=== PATIENT | female | born 1990 | race Caucasian/White ===

== ENCOUNTER 2016-11-19 12:47 | Emergency (ER) | payer MEDICAID ==
[~2016-11-19] VITALS: Ht 165.1 cm; Wt 58.1 kg
[~2016-11-19 12:47] MED LIST: CEPH500C PO; CEPH500T PO; DCS100C PO; DOXY100C42 PO; HYDR-3729 PO; IBP600T1 PO; IBUP-1773 PO; METR500T PO; METR500T21 PO; NITR-65 PO; OSLT75C PO; OXYC-12 PO; PHEN100T26 PO; PHEN200T27 PO; PREN-115 PO; SULF-222 PO; SULF1TAB35 PO
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
[2016-11-19] MEDS ORDERED: KETOROLAC 60 MG/2 ML VIAL IM ONE (13:00)
[2016-11-19 14:18] LABS: BILIRUBIN,URINE NEGATIVE (NEGATIVE); KETONES,URINE NEGATIVE (NEGATIVE); LEUKOCYTE ESTERASE ,URINE 1+ (NEGATIVE); NITRITE,URINE NEGATIVE (NEGATIVE); PH,URINE 5 (5-9); PROTEIN,URINE NEGATIVE (NEGATIVE); UROBILINOGEN,URINE NORMAL (NORMAL)
[2016-11-19 14:30] LABS: SQUAMOUS EPITHELIAL CELL,UR 25-50 /HPF; WBC,URINE 0-2 /HPF
[2016-11-19 14:39] VITALS: BP 120/71
== END 2016-11-19 14:39 | disposition home or self-care (01) ==
LOC: EDUNIT# 12:47 → ER 12:50
DX: M25.551 Pain in right hip (principal); M25.552 Pain in left hip; N89.8 Other specified noninflammatory disorders of vagina; R35.0 Frequency of micturition
CPT/HCPCS: 36415; 81000; 84703; 87070; 87210; 87491; 87591; 96372; 99284

== ENCOUNTER → 2017-08-21 | Outpatient (CLI) | payer MEDICAID ==
--- NOTE | 2017-08-21 12:55 | Diagnostic Imaging Report ---
First trimester OB ultrasound. INDICATION: Dating. FINDINGS: There is a normal-appearing single intrauterine . An embryo is seen with cardiac activity at 132 beats per minute. The crown-rump length is at 7 weeks and zero day. BLAKE is 04/09/18. The ovaries are not seen, likely obscured by bowel gas. IMPRESSION: Live single intrauterine . Dictated by: Dictated on workstation # [id number]
== END ==
LOC: RAD 11:31
PROVIDERS: ATTEND Family Medicine
DX: Z36.87 Encounter for antenatal screening for uncertain dates (principal); Z3A.01 Less than 8 weeks gestation of pregnancy
CPT/HCPCS: 76801; 76817

== ENCOUNTER → 2017-11-14 | Outpatient (CLI) | payer MEDICAID ==
--- NOTE | 2017-11-14 14:42 | Diagnostic Imaging Report ---
INDICATION: survey. TECHNIQUE: Multiple real-time grayscale images were obtained over the gravid uterus. COMPARISON: 08/21/2017. FINDINGS: There is a single live fetus in a variable presentation. The placenta is anterior. The amniotic fluid volume is normal. heart rate was recorded at 146 beats per minute. survey demonstrates kidneys, bladder and stomach to be unremarkable. brain is unremarkable. The four-chamber heart view is unremarkable. There is a three-vessel cord. There is a normal cord insertion. The spine is unremarkable. Biometrical measurements are as follows: Biparietal 4.6 cm, age 19 weeks 6 days. Head circumference 16.7 cm, age 19 weeks 3 days. Abdominal circumference 14.3 cm, age 19 weeks 5 days. Femur length 3.1 cm, age 19 weeks 4 days. Sonographic estimate age: 19 weeks 5 days. Sonographic estimated date of delivery: 04/05/18. Estimated Weight: 298 gm (+/- 44 gm). LMP percentile: 69%. heart rate: 146 beats per minute. number: 1 of 1. IMPRESSION: Single live IUP approximately 19-20 weeks gestational age demonstrating normal interval growth when compared with exam from 08/21/2017. No complicating features are detected. Dictated by: Dictated on workstation # [id number]
== END ==
LOC: RAD 13:10
PROVIDERS: ATTEND Family Medicine
DX: Z36.89 Encounter for other specified antenatal screening (principal); Z3A.19 19 weeks gestation of pregnancy
CPT/HCPCS: 76805

== ENCOUNTER 2018-02-27 20:50 | Outpatient (CLI) | payer MEDICAID ==
[~2018-02-27] VITALS: Ht 167.6 cm; Wt 81.0 kg
[2018-02-27] MEDS ORDERED: prenatal (21:27)
[2018-02-27 21:40] VITALS: BP 115/74
--- NOTE | 2018-03-02 12:04 | Physician Query-Final Dx ---
REZA NIETO 03/02/18 1204: Clinic Account Progress/Dx Physician Query: Please give diagnosis Date of Service February 27, 2018 at 20:50 LESLEY DO DO 03/16/18 0730: Clinic Account Progress/Dx DIAGNOSIS: Diagnosis 1. 34 week gestatioin 2. swelling BP check - wnl REZA NIETO March 02, 2018 12:04 LESLEY DO DO March 16, 2018 07:30
== END 2018-02-27 22:10 ==
LOC: LDRP 20:50 → WSo 20:50
PROVIDERS: ATTEND Family Medicine
DX: O12.03 Gestational edema, third trimester (principal); Z3A.34 34 weeks gestation of pregnancy
CPT/HCPCS: 99213

== ENCOUNTER 2018-03-22 22:06 | Outpatient (CLI) | payer MEDICAID ==
[~2018-03-22] VITALS: Ht 165.1 cm; Wt 86.2 kg
[~2018-03-22 22:06] MED LIST changes: +prenatal
[2018-03-22 23:05] VITALS: BP 118/69
[2018-03-22] MEDS ORDERED: PREN1TAB19 PO (23:55)
[2018-03-23] MEDS ORDERED: hydrOXYzine (VISTARIL) 25 MG CAP PO ONE
[2018-03-23] MEDS ORDERED: hydrOXYzine (VISTARIL) 25 MG CAP ONE (00:09)
[2018-03-23] MEDS ORDERED: SUFENTA 0.6MCG/ML BUPIVA 0.125 100 ML ONE (04:22)
--- NOTE | 2018-03-23 14:17 | Physician Query-Final Dx ---
JAROD RAYGOZA 03/23/18 1417: Clinic Account Progress/Dx Physician Query: Please give diagnosis Date of Service Mar 22, 2018 at 22:06 YASMIN ROMAN MD 03/24/18 2200: Clinic Account Progress/Dx DIAGNOSIS: Diagnosis third trimester preg Contractions JAROD RAYGOZA Mar 23, 2018 14:17 YASMIN ROMAN MD Mar 24, 2018 22:00
== END 2018-03-23 00:12 | disposition home or self-care (01) ==
LOC: LDRP 22:06 → WSo 22:06
PROVIDERS: ATTEND Family Medicine
DX: O47.1 False labor at or after 37 completed weeks of gestation (principal); Z3A.37 37 weeks gestation of pregnancy
CPT/HCPCS: 99213

== ENCOUNTER 2018-04-05 19:00 | Inpatient (IN) | payer MEDICAID ==
[~2018-04-05] VITALS: Ht 165.1 cm; Wt 86.0 kg
[~2018-04-05 19:00] MED LIST changes: +PREN1TAB19 PO
[2018-04-05 19:33] VITALS: BP 133/84
--- OUTSIDE RECORDS SUMMARY | 2018-04-05 19:36 | XMS REPORT ---
Author Author LESLEY DO Organization [employer] Address Unknown Phone Unavailable Care Team Providers Care Inspector Balance Bridge Name Role Phone LESLEY DO CP Unavailable Allergies No Known Allergies Problems No Known Problems Medications No Known Medications Results No Known Results Summary Purpose [employer] Submission
--- OUTSIDE RECORDS SUMMARY | 2018-04-05 19:37 | XMS REPORT | Continuity of Care Document ---
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 DATING [id number] 04/11/2016 20:59:00 04/11/2016 22:20:00 DIS Emergency ALEXY STEELE MD [facility] [place] ER CRAMPING;8 WEEKS [id number] 02/13/2016 11:18:00 02/13/2016 13:06:00 DIS Emergency ALEXY STEELE MD [facility] [place] ER UTI SYMPTOMS/ITCHING [id number] 01/04/2016 07:29:00 01/04/2016 09:19:00 DIS Emergency ALEXY STEELE MD [facility] [place] ER COUGH;BODY ACHES; FEVER [id number] 07/27/2015 19:15:00 07/27/2015 20:25:00 DIS Emergency DIONISIO KERR DO [facility] [place] ER POSSIBLE YEAST INFECTION [id number] 02/01/2015 20:24:00 02/01/2015 21:49:00 DIS Emergency HEATHER DAVIS APRN [facility] [place] ER PERIOD LASTING 3 WKS [id number] 12/10/2013 06:04:00 12/11/2013 14:15:00 DIS Inpatient DWAYNE DOVER MD [facility] [place] WS INDUCTION [id number] 12/01/2013 00:03:00 12/01/2013 03:55:00 DIS Outpatient DWAYNE DOVER MD [facility] [place] WSo CONTRACTIONS [id number] 11/21/2013 20:34:00 11/22/2013 00:10:00 DIS Outpatient DWAYNE DOVER MD [facility] [place] [facility]So POSS CONTRACTIONS [id number] 09/17/2013 17:41:00 09/17/2013 19:04:00 DIS Emergency ALEXY STEELE MD [facility] [place] ER L LEG PAIN; NO INJ [id number] 09/17/2013 16:32:00 09/17/2013 17:35:00 DIS Outpatient WDAYNE DOVER MD [facility] [place] [facility]So L LEG PAIN [id number] 09/05/2013 15:43:00 09/05/2013 23:59:59 CLS Outpatient [id number] 08/13/2013 14:58:00 08/13/2013 23:59:59 CLS Outpatient DWAYNE DOVER MD [facility] [place] [facility] FUNDAL HEIGHT DISCREPENCY [id number] 05/14/2013 14:48:00 05/14/2013 23:59:59 CLS Outpatient DWAYNE DOVER MD [facility] [place] [facility] SIZE DATE DISCREPANCY [id number] 04/11/2013 18:50:00 04/11/2013 20:57:00 DIS Emergency MORRIS NOBLES [facility] [place] [facility] CRAMPING PREG LESS THAN 20 WEEKS [id number] 03/16/2012 20:01:00 Document Registration [id number] 07/03/2011 19:07:00 Document Registration [id number] 07/01/2011 12:39:00 Document Registration [id number] 06/26/2011 22:22:00 Document Registration [id number] 06/09/2011 00:09:00 Document Registration [id number] 03/01/2011 13:57:00 Document Registration [id number] 01/04/2011 15:30:00 Document Registration [id number] 05/29/2010 18:31:00 Document Registration
[2018-04-05] MEDS ORDERED: D5 LR IV SOLUTION 1,000 ML IV ONE (19:50)
[2018-04-05] MEDS: D5 LR IV SOLUTION 1,000 ML IV SCH (20:00)
[2018-04-05] MEDS ORDERED: NITR-65 PO (20:29)
[2018-04-05] MEDS ORDERED: BUTORPHANOL INJ 2 MG/ML (STADOL) VIAL IV PRN (20:30)
[2018-04-05] MEDS ORDERED: MINERAL OIL CONCENTRATE 99.9% 15 ML UDC TOP PRN (20:30)
[2018-04-05] MEDS ORDERED: ZOLPIDEM 5 MG (AMBIEN) TAB PO PRN (20:30)
[2018-04-05] MEDS ORDERED: DINOPROSTONE 10 MG (CERVIDIL) INSERT PV ONE (20:30)
[2018-04-05] MEDS ORDERED: NITROFURANTOIN 100 MG (MACROBID) CAPSULE PO ONE (20:30)
[2018-04-05 20:37] LABS: BASOPHILS % (AUTO) 0 % (0-10); EOSINOPHILS # (AUTO) 0.2 10^3/uL (0.0-0.3); EOSINOPHILS % (AUTO) 2 % (0-10); HEMATOCRIT 36 % (35-52); HEMOGLOBIN 12.2 G/DL (11.5-16.0); LYMPHOCYTES % (AUTO) 19 % (12-44); MEAN CORPUSCULAR HEMOGLOBIN 29 PG (25-34); MEAN CORPUSCULAR HGB CONC 34 G/DL (32-36); MEAN CORPUSCULAR VOLUME 85 FL (80-99); MEAN PLATELET VOLUME 10.7 FL (7.4-10.4); MONOCYTES # (AUTO) 0.5 X 10^3 (0.0-1.0); MONOCYTES % (AUTO) 5 % (0-12); NEUTROPHILS # (AUTO) 7.6 X 10^3 (1.8-7.8); NEUTROPHILS % (AUTO) 74 % (42-75); PLATELET COUNT 294 10^3/uL (130-400); RED BLOOD COUNT 4.23 10^6/uL (4.35-5.85); RED CELL DISTRIBUTION WIDTH 13.6 % (10.0-14.5); WHITE BLOOD COUNT 10.3 10^3/uL (4.3-11.0)
[2018-04-05] MEDS ORDERED: CATHETER FLUSH 10 ML SYR IV SCH (22:00)
[2018-04-05 23:30] VITALS: BP 106/55
[2018-04-06] VITALS (36 sets, daily range): BP systolic 98–178; BP diastolic 55–95
[2018-04-06] MEDS: D5 LR IV SOLUTION 1,000 ML IV SCH (04:00)
[2018-04-06] MEDS ORDERED: OXYTOCIN/NORMAL SALINE 500 ML IV SCH ×2 (07:17→12:26)
--- NOTE | 2018-04-06 07:17 | History & Physical-OB ---
OB - Chief Complaint & HPI Date/Time Date of Admission: Date of Admission: Apr 05, 2018 at 19:15 Time Seen by Provider: 07:05 Chief Complaint/History OB-Reason for Admission/Chief: Induction of Labor Hx : 3 Hx Para: 2 Expected Date of Delivery: Apr 09, 2018 Gestational Age in Weeks: 39 Gestational Age in Days: 4 Admission Nurse Assessment Rev: Yes History of Labs GBS negative Allergies and Home Medications Allergies Coded Allergies: No Known Drug Allergies (Unverified , 08/29/16) Home Medications Nitrofurantoin Monohyd/M-Cryst 100 Mg Capsule, 1 TAB PO BID, (Reported) Vit/Iron Fumarate/FA 1 Each Tablet, 1 EACH PO DAILY, (Reported) Patient Home Medication List Home Medication List Reviewed: Yes OB - History Hx of Present Care: Yes Ultrasounds: Normal mid trimester US Obstetrical Complications: None Medical Complications: None Obstetrical History Hx Complication: No Hx Induced Hypertens: No Hx Maternal Gestational Diabet: No Delivery History Hx Dystocia: No Hx Large For Gestational Age I: No Hx Small for Gestational Age I: No Hx Section: No Hx Vaginal Delivery Post C-Sec: No Hx Blood Disorders: No Adverse Rxn to Tranfusion: No Patient Past Medical History no chronic medical problems Social History/Family History HIV/AIDS: No Recent Infectious Disease Expo: No Sexually Transmitted Disease: No Alcohol Use: Denies Use Recreational Drug Use: No OB - Admission Exam Physical Exam Vitals: Vital Signs 04/06/18 04:03 Temp 98.2 Pulse 56 Resp 18 B/P (MAP) 117/73 (88) O2 Delivery Room Air HEENT: Moist Membranes Heart: Rhythm Normal Lungs: Clear Abdomen: Gravid Extremities: Normal Cervical Dilatation: 1cm Effacement: 50% Station: -3 Membranes: Intact Heart Rate: 140's Accelerations: Accelerations Present Short Term Variability: Present Contractions on Admission: < 5 Minutes Apart Intensity: Mild Lundy Scoring Tool (Modified) Dilation (cm): 1-2cm (1) Effacement (%): 31-51% (1) Descent/Station: -3 (0) Cervix Consistency: Medium(1) Cervix Position: Middle/Mid-Position (1) Lundy Score: 6 Labs Laboratory Tests Test 04/05/18 20:00 Range/Units White Blood Count 10.3 4.3-11.0 10^3/uL Red Blood Count 4.23 L 4.35-5.85 10^6/uL Hemoglobin 12.2 11.5-16.0 G/DL Hematocrit 36 35-52 % Mean Corpuscular Volume 85 80-99 FL Mean Corpuscular Hemoglobin 29 25-34 PG Mean Corpuscular Hemoglobin Concent 34 32-36 G/DL Red Cell Distribution Width 13.6 10.0-14.5 % Platelet Count 294 130-400 10^3/uL Mean Platelet Volume 10.7 H 7.4-10.4 FL Neutrophils (%) (Auto) 74 42-75 % Lymphocytes (%) (Auto) 19 12-44 % Monocytes (%) (Auto) 5 0-12 % Eosinophils (%) (Auto) 2 0-10 % Basophils (%) (Auto) 0 0-10 % Neutrophils # (Auto) 7.6 1.8-7.8 X 10^3 Lymphocytes # (Auto) 2.0 1.0-4.0 X 10^3 Monocytes # (Auto) 0.5 0.0-1.0 X 10^3 Eosinophils # (Auto) 0.2 0.0-0.3 10^3/uL Basophils # (Auto) 0.0 0.0-0.1 10^3/uL OB - Assessment/Plan/Diagnosis Assessment Assessment: induction of labor Admission Dx IUP at 39w4d gestation Admission Status: Inpatient Order (span 2 midnights) Reason for Inpatient Admission: Labor management Plan Plan: Induction Induction Method: other (cervidil) Other Plan desires epidural DWAYNE DOVER MD Apr 06, 2018 07:16
[2018-04-06] MEDS ORDERED: SUFENTA 0.6MCG/ML BUPIVA 0.125 100 ML ONE (07:53)
[2018-04-06] MEDS ORDERED: fentaNYL INJECTION 100 MCG/2 ML AMP ONE (08:43)
[2018-04-06] MEDS ORDERED: BUPIVACAINE 0.25% 30 ML (SENSORCAINE) VIAL ONE (08:43)
[2018-04-06] MEDS ORDERED: LIDOCAINE PF 2% 5 ML (XYLOCAINE) VIAL ONE (08:43)
[2018-04-06] MEDS ORDERED: LACTATED RINGERS 1,000 ML IV SCH (09:11)
[2018-04-06] MEDS ORDERED: EPIDURAL (SUFENTA 0.6MCG/ML BUPIVA 0.125%) 100 ML BAG EPI PRN (09:15)
[2018-04-06] MEDS ORDERED: NALOXONE 0.4 MG/ML 1 ML (NARCAN) VIAL IV PRN (09:15)
[2018-04-06] MEDS ORDERED: ONDANSETRON 4 MG/2 ML (SDV) Z0FRAN IV PRN (09:15)
[2018-04-06] MEDS ORDERED: diphenhydrAMINE 50 MG/ML INJ (BENADRYL) IV PRN (09:15)
[2018-04-06] MEDS ORDERED: WITCH HAZEL(TUCKS) 40 EA JAR TOP PRN (12:30)
[2018-04-06] MEDS ORDERED: MEASLES,MUMPS,RUBELLA 1 EA INJ SQ ONE (12:30)
[2018-04-06] MEDS ORDERED: BENZOCAINE/MENTHOL (DERMOPLAST) 56 ML CAN TP PRN (12:30)
[2018-04-06] MEDS ORDERED: TETANUS,DIPTH,PERTUSS P/F (BOOSTRIX) 0.5 ML VIAL IM ONE (12:30)
--- NOTE | 2018-04-06 12:31 | OB Labor & Delivery Record ---
L&D History Date of Service Date of Service: Apr 06, 2018 History Expected Date of Delivery: Apr 09, 2018 Gestational Age in Weeks: 39 Hx : 3 Hx Para: 3 Complications Events: Routine care Operative Indications (Cesarea: N/A-Vaginal Delivery Intrapartal Events: None L&D Stage1 Stage One Onset of Labor - Date: Apr 06, 2018 Onset of Labor - Time: 07:00 Monitors and Tracing Monitor Mode: Internal Heart Rate: 120 Monitor Accelerations: Uniform Station: -1 Short Term Variability: Present Presentation: Vertex Vital Signs VS - Last 72 Hours, by Label 04/05/18 04/05/18 04/06/18 04/06/18 19:33 23:30 04:03 08:00 Temp 99.0 97.8 98.2 Pulse 79 55 56 60 Resp 18 18 18 B/P (MAP) 133/84 (100) 106/55 (72) 117/73 (88) 150/95 (113) O2 Delivery Room Air Room Air Room Air Room Air 04/06/18 04/06/18 04/06/18 04/06/18 08:30 08:55 09:00 09:03 Temp 99.2 Pulse 58 84 78 77 Resp 18 B/P (MAP) 152/94 (113) 178/85 (116) 139/92 (108) 125/80 (95) Pulse Ox 100 O2 Delivery Room Air Room Air Room Air 04/06/18 04/06/18 04/06/18 04/06/18 09:06 09:09 09:15 09:18 Pulse 71 86 75 100 Resp 18 B/P (MAP) 128/84 (99) 127/80 (96) 146/84 (104) 127/71 (89) Pulse Ox 99 99 O2 Delivery Room Air Room Air Room Air Room Air 04/06/18 04/06/18 04/06/18 04/06/18 09:21 09:24 09:27 09:30 Pulse 65 68 68 70 B/P (MAP) 126/75 (92) 122/76 (91) 116/79 (91) 126/84 (98) O2 Delivery Room Air Room Air Room Air Room Air 04/06/18 04/06/18 04/06/18 04/06/18 09:35 09:38 09:40 09:45 Pulse 65 74 76 74 B/P (MAP) 118/71 (87) 115/55 (75) 101/59 (73) 100/63 (75) O2 Delivery Room Air Room Air Room Air Room Air 04/06/18 04/06/18 04/06/18 04/06/18 09:48 09:51 09:58 10:00 Pulse 70 54 64 58 B/P (MAP) 116/59 (78) 115/63 (80) 113/69 (84) 98/55 (69) Pulse Ox 99 99 99 O2 Delivery Room Air Room Air Room Air Room Air 04/06/18 04/06/18 04/06/18 10:15 10:30 10:45 Pulse 61 67 64 B/P (MAP) 107/65 (79) 107/65 (79) 133/79 (97) Pulse Ox 100 100 100 O2 Delivery Room Air Room Air Room Air Signs of Distress by FHT Signs of Distress no Rupture of Membranes Spontaneous Ruture of Membrane: No Amniotic Membrane Rupture Time: 15 Amniotic Membrane Fluid Desc.: Clear Induction/Anesthesia Epidural Cath Placement - Time: 0858 L&D Stage2 Stage Two Stage II Date: Apr 06, 2018 Stage II Time: 11:40 Monitors and Tracing Monitor Mode: Internal Heart Rate: 120 Monitor Accelerations: Uniform Monitor Decelerations: Variable Summer Counselor Variability: Average (6-10) Position: Left Occiput Anterior Presentation: Vertex Signs of Distress by FHT Signs of Distress no Cord Descript/Complications Cord Vessel Description: 3 Vessels Delivery Type Delivery Method: Spontaneous Vaginal Anterior Shoulder: Left Episiotomy/Perineal Laceration Laceraction(s)/Extensions: No Condition of Infant Delivery 1 minute Comment: 9 5 minute Comment: 9 Condition of Infant Condition of : Living Exam: No Observed Abnormalities Resuscitation Resuscitation: N/A - Spontaneous Resp L&D Stage3 Stage Three Stage III Date: Apr 06, 2018 Stage III Time: 11:44 Pictocin Pitocin Administration mu/min: 2 Pitocin ml/hr: 2 Pitocin Administration Comment: 1010 pitocin started Placenta Delivery Placenta Delivery: Spontaneous Delivery Summary Summary Estimated blood loss (mL): 200 Condition of Delivery Examined: Cervix Examined Post Hemorrhage: No Intervention Required none DWAYNE DOVER MD Apr 06, 2018 12:31
[2018-04-06] MEDS: IBUPROFEN 600 MG (MOTRIN) TAB PO SCH ×2 (13:30→20:30)
[2018-04-06] MEDS ORDERED: CATHETER FLUSH 10 ML SYR IV SCH (14:00)
[2018-04-06] MEDS: NITROFURANTOIN 100 MG (MACROBID) CAPSULE PO SCH (20:30)
[2018-04-06] MEDS ORDERED: [UNRECOGNIZED DRUG - OTHER] PO SCH (21:00)
[2018-04-06] MEDS: DOCUSATE SODIUM 100 MG (COLACE) CAP PO SCH (23:43)
[2018-04-07] MEDS: IBUPROFEN 600 MG (MOTRIN) TAB PO SCH ×3 (02:41→13:41)
[2018-04-07 04:15] VITALS: BP 109/74
[2018-04-07] MEDS ORDERED: PRENATAL VITAMIN 1 EA TAB PO SCH (07:00)
[2018-04-07 07:01] LABS: BASOPHILS % (AUTO) 0 % (0-10); EOSINOPHILS # (AUTO) 0.3 10^3/uL (0.0-0.3); EOSINOPHILS % (AUTO) 3 % (0-10); HEMATOCRIT 30 % (35-52); HEMOGLOBIN 9.8 G/DL (11.5-16.0); LYMPHOCYTES # (AUTO) 2.4 X 10^3 (1.0-4.0); LYMPHOCYTES % (AUTO) 19 % (12-44); MEAN CORPUSCULAR HEMOGLOBIN 29 PG (25-34); MEAN CORPUSCULAR HGB CONC 33 G/DL (32-36); MEAN CORPUSCULAR VOLUME 87 FL (80-99); MEAN PLATELET VOLUME 10.6 FL (7.4-10.4); MONOCYTES # (AUTO) 0.9 X 10^3 (0.0-1.0); MONOCYTES % (AUTO) 7 % (0-12); NEUTROPHILS # (AUTO) 8.8 X 10^3 (1.8-7.8); NEUTROPHILS % (AUTO) 71 % (42-75); PLATELET COUNT 208 10^3/uL (130-400); RED CELL DISTRIBUTION WIDTH 13.6 % (10.0-14.5); WHITE BLOOD COUNT 12.4 10^3/uL (4.3-11.0)
[2018-04-07 07:15] VITALS: BP 128/95
[2018-04-07] MEDS: NITROFURANTOIN 100 MG (MACROBID) CAPSULE PO SCH ×2 (07:46→17:35)
[2018-04-07] MEDS: DOCUSATE SODIUM 100 MG (COLACE) CAP PO SCH (07:47)
[2018-04-07] MEDS ORDERED: IRON FUMARATE PO SCH (09:00)
[2018-04-07] MEDS ORDERED: PRENATAL VIT PO SCH (09:00)
[2018-04-07] MEDS ORDERED: [UNRECOGNIZED DRUG - OTHER] PO SCH (09:00)
--- NOTE | 2018-04-07 11:05 | Anesthesia-Regional Post-Op ---
Regional Patient Condition Mental Status: Alert, Oriented x3 Circulation: Same as Pre-Op Headache: Absent Sensation: Full Recovery Motor Block: Absent Post Op Complications Complications None Follow Up Care/Instructions Patient Instructions None needed. Anesthesia/Patient Condition Patient is doing well, no complaints, stable vital signs, no apparent adverse anesthesia problems. No complications reported per nursing. YOAN RAMIREZ CRNA Apr 07, 2018 11:05
[2018-04-07 13:35] VITALS: BP 120/81
[2018-04-07] MEDS: HYDROcodone/APAP 5 MG/325 MG (LORTAB) TAB PO PRN ×2 (13:41→17:30)
--- NOTE | 2018-04-07 15:11 | Discharge Inst-Women's Service ---
Discharge Inst-Women's Serv Consults/Follow Up Additional Follow Up: Yes (Dr Dover in 6 weeks) Activity Driving Instructions: No Driving for 1 Week Nothing Inside Vagina: No [place] (for 4-6 weeks) Diet Discharge Diet: No Restrictions Return to The Hospital For: as below Symptoms to Report to : Pain Increased, Fever Over 101 Degrees F, Vaginal Bleeding Increase, Vaginal Discharge Foul For Any Problems or Questions: Contact Your Physician DWAYNE DOVER MD Apr 07, 2018 15:11
[2018-04-07] MEDS ORDERED: TETANUS,DIPTH,PERTUSS P/F (BOOSTRIX) 0.5 ML VIAL IM ONE (16:39)
--- NOTE | 2018-04-07 16:46 | Discharge Summary ---
Diagnosis/Chief Complaint Date of Admission Apr 05, 2018 at 19:15 Date of Discharge April 07, 2018 Discharge Date: Apr 07, 2018 Admission Diagnosis Admission Diagnosis 1. IUP at 39 weeks. Discharge Diagnosis 1. IUP at 39 weeks. Reason Hospital Visit 27-year-old female 3 now term 3 who presents to labor and delivery for induction of labor during the evening of April 05. Patient was noted to be at 39 weeks gestation and care was essentially unremarkable. Discharge Summary-OBS Procedures 1. Epidural, per anesthesia 2. Spontaneous vaginal delivery Discharge Physical Examination Allergies: Coded Allergies: No Known Drug Allergies (Unverified , 08/29/16) Vitals & I&Os Vital Signs Date Time Temp Pulse Resp B/P (MAP) Pulse Ox O2 Delivery O2 Flow Rate FiO2 04/07/18 13:35 98.9 74 18 120/81 (94) Room Air 04/07/18 04:15 99 General Appearance: No Acute Distress Respiratory: Normal Air Movement Cardiovascular: No Murmurs Abdominal: Soft (with uterus firm) Hospital Course Following admission she underwent cervidil ripending and tolerated well. She was noted to develop a contraction pattern during the cable way operator of April 06, 2019. She ultimately underwent amniotomy with clear fluid noted. Patient continued to contract and eventually required Pitocin augmentation to achieve adequate labor. She ultimately went on to deliver a term viable female over an intact perineum. See full details on labor and delivery summary. Following delivery patient underwent routine care orders she had no complications during the remainder of hospital stay. Her hemoglobin was noted to be 9.8 day after delivery compared to on admission of 12.2. Patient weighs asymptomatic and without dizziness. She tolerated regular diet. She was ambulatory without shortness of breath or leg pain. Patient was felt ready for dismissal on April 07, 2018. All questions were answered. Discharge Instructions to patient/family Please see electronic discharge instructions given to patient. Discharge Medications Reviewed and agree with Discharge Medication list on patient's Discharge Instruction sheet Clinical Quality Measures DVT/VTE Risk/Contraindication: Risk Factor Score Per Nursin RFS Level Per Nursing on Admit: 2=Moderate DWAYNE DOVER MD Apr 07, 2018 16:46
== END 2018-04-07 18:00 | disposition home or self-care (01) | DRG 775 ==
LOC: LDRP 19:15
PROVIDERS: ADMIT Family Medicine; ATTEND Family Medicine
PROC: 3E0P7GC Introduction of Other Therapeutic Substance into Female Reproductive, Via Natural or Artificial Opening (ICD-10-PCS; 2018-04-05)
PROC: 10E0XZZ Delivery of Products of Conception, External Approach (ICD-10-PCS; principal; 2018-04-06)
DX: O80 Encounter for full-term uncomplicated delivery (principal); Z37.0 Single live birth; Z23 Encounter for immunization; Z3A.39 39 weeks gestation of pregnancy
CPT/HCPCS: 36415; 85025; 86850; 86900; 86901; 90715